=== PATIENT | male | born 1975 | race Caucasian/White ===

== ENCOUNTER 2017-07-05 13:12 | Emergency (ER) | payer BC ==
[2017-07-05 13:31] VITALS: BP 117/71; PULSE 77; RESP 18; TEMP 97.9; O2SAT 98
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
== END 2017-07-05 14:19 | disposition home or self-care (01) ==
LOC: C.ER 13:12
DX: S23.3XXA Sprain of ligaments of thoracic spine, initial encounter (principal); V43.52XA Car driver injured in collision with other type car in traffic accident, initial encounter; J30.2 Other seasonal allergic rhinitis